=== PATIENT | female | born 1960 | race Caucasian/White ===

== ENCOUNTER → 2024-03-07 06:48 | Outpatient (REF) | payer OTHER, SELFPAY | LOC: WDC 06:48 | PROVIDERS: ATTENDING PHYSICIAN Family Medicine | DX: Z12.31 Encounter for screening mammogram for malignant neoplasm of breast (principal) | CPT/HCPCS: 77063; 77067 ==

== ENCOUNTER → 2024-05-30 06:31 | Day surgery (SDC) | payer OTHER, SELFPAY | LOC: GI 06:31 | PROVIDERS: ATTENDING PHYSICIAN Internal Medicine; FAMILY PHYSICIAN Family Medicine | DX: Z12.11 Encounter for screening for malignant neoplasm of colon (principal); Z80.0 Family history of malignant neoplasm of digestive organs; K57.30 Diverticulosis of large intestine without perforation or abscess without bleeding; K44.9 Diaphragmatic hernia without obstruction or gangrene; K31.7 Polyp of stomach and duodenum; K22.89 Other specified disease of esophagus; K29.50 Unspecified chronic gastritis without bleeding; K20.80 Other esophagitis without bleeding | CPT/HCPCS: 43239; G0105; 88305; 88342 ==

== ENCOUNTER 2025-06-25 06:45 | Emergency (ER) | payer OTHER, SELFPAY ==
[2025-06-25 06:47] VITALS: BP 117/71
[2025-06-25 07:07] VITALS: BMI 24.1
--- NOTE | 2025-06-25 07:11 | ED.GENMED ---
History of Present Illness
General
Chief Complaint: Abdominal Pain
Source: patient
Exam Limitations: none
Time Seen by Provider: 06/25/25 06:55
Nursing documentation reviewed up to this point in time: agreed with
History of Present Illness
History of Present Illness:
Patient presents to ED secondary to worsening lower abdominal pain with nausea sensation over the past 5 days. Abdominal pain described as sharp, nonradiating, without any alleviating or exacerbating factors. Patient states that 1 month ago, she
had similar symptoms which resolved gradually over the 1 week period. Patient was symptom-free over the following 2 weeks, until pain started again this weekend. Denies chills, but reports low-grade fever. Denies vomiting. Patient reports loose
bowel movements. Denies recent change in medications or diet. Denies recent travel. Denies recent sick contact. Patient does have history of C. difficile colitis, which she contracted when taking care of her father for C. difficile. There is
family history of colon cancer, for which she receives screening colonoscopy, which have been normal. However, she has been told that she may have diverticulosis and avoid seedy products in her diet. In addition, patient who has chronic back pain,
reports exacerbating her back pain, when she bent down this morning. Denies urinary or bowel incontinence. Denies loss of sensation or weakness of legs. Patient does see chiropractor on regular basis.
Past History
Past History
ED Past Medical History: Other (History of encephalitis )
ED Past Surgical History: Other (Tubal ligation, vein stripping, oral surgery )
Social History
Tobacco: Non-smoker
Personal:
Review of Systems
Review of Systems
Allergies reviewed?: Yes
All Other Systems: ROS reviewed and negative except as documented in HPI and ROS
Constitutional: Reports fever; Denies chills
Respiratory: Reports no symptoms
Cardiac: Reports no symptoms
ABD/GI: Reports abdominal pain, nausea and diarrhea; Denies vomiting
Musculoskeletal: Reports back pain
Skin: Reports no symptoms
Neurological: Reports no symptoms
Phy Exam
Physical Exam
Physical Exam:
Physical Exam
General: mild painful distress, not acutely ill. afebrile
Head: nc/at. eomi
Neck: supple. normal range of motion
Abdomen: normal bowel sounds. no distention. mild LLQ tenderness to palpation
Neuro: alert and oriented x 3. no focal neurological deficits
Skin: no rash
Psychiatric: well kept. interactive and cooperative
Extremities: no edema. no calf tenderness.
Course
Orders/Labs/Results
Orders:
Orders
06/25/25 07:10
CT Abd/pelvis W Iv Cont Urgent
Comment:
Reason For Exam: LLQ pain
Ketorolac [Toradol] 15 mg IV NOW STA
06/25/25 07:11
0.9% Sodium Chloride 500 ml [Nss] 500 ml IV BOLUS
06/25/25 07:21
Complete Blood Count/With Diff Urgent
06/25/25 07:22
Comprehensive Metabolic Panel Urgent
06/25/25 08:28
Urinalysis Reflex To Culture Urgent
Date Specimen was Collected: 06/25/25
Time Specimen was Collected: 08:25
06/25/25 08:55
Amoxicillin 875 mg/Clav 125 mg [Augmentin 875 mg/125 mg] 1 tablet PO NOW STA
Abnormal Lab Results
06/25/25 06/25/25
07:21 07:22
Absolute Neuts (auto) 6.6 H 10^3/uL
(1.4-6.5)
Absolute Monos (auto) 0.8 H 10^3/uL
(0.1-0.6)
Neutrophils % 75.5 H %
(42.2-75.2)
Lymphocytes % 14.2 L %
(20.5-51.1)
Glucose 103 H mg/dl
(70-99)
06/25/25 07:21
06/25/25 07:22
Vital Signs
Initial and Last Documented VS:
Initial Vital Signs
Temp Pulse Resp BP Pulse Ox
98.3 F 91 18 117/71 100
06/25/25 06:47 06/25/25 06:47 06/25/25 06:47 06/25/25 06:47 06/25/25 06:47
Last Documented Vital Signs
Temp Pulse Resp BP Pulse Ox
98.3 F 91 18 114/50 97
06/25/25 06:47 06/25/25 06:47 06/25/25 06:47 06/25/25 08:30 06/25/25 08:30
MDM/Problems Addressed
MDM/Problems Addressed:
CT abdomen pelvis report reviewed and discussed with patient. Patient otherwise remains afebrile, hemodynamically stable, and nontoxic-appearing, with improvement in symptoms after administration of Toradol IV. As such, patient will be discharged
home with antibiotics, i.e. Augmentin, with recommendation to follow-up with her GI physician for reevaluation. Return precautions provided, i.e. fever/worsening pain/vomiting. Patient expressed understanding at time of discharge.
*Pulse Oximetry
SaO2: 100
Oxygen Mode of Delivery: Room air
Patient hypoxic: no
*Critical Care Note
Total Time (30-74mins, 75-104mins- exclusive of procedures): Not Applicable
ED Attending Note
-
Portions of this chart may have been created with voice recognition software.� Occasional wrong word or��sound alike� substitutions may have occurred due to the inherent limitations of voice recognition software.
Discharge Plan
Departure
Patient Disposition: Home (Routine Discharge)
Date of Disposition: 06/25/25
Time of Disposition: 08:56
Patient with high blood pressure during this ER visit?: No
Condition: Good
Discharge Problem:
Diverticulitis
Instructions: Diverticulitis (DC)
Prescriptions:
New
amoxicillin-pot clavulanate 875-125 mg tablet
1 tab PO Q12H Qty: 19 0RF
Referrals:
Viviana Field MD [Family Provider, Internal Medicine]
Maria Victoria hCase DO [Active, Gastroenterology]
Activity Restrictions/Additional Instructions:
As discussed, please follow-up with your primary care physician and/or GI physician for reevaluation. Please consider return to ED with worsening symptoms, i.e. fever/worsening pain/vomiting. Your prescription has been sent electronically to [facility]
pharmacy in [place].
Interventions
Interventions:
*Risk Screen - Suicide Last Done: 06/25/25 06:47
*General Assessment Last Done: 06/25/25 06:47
*Neglect/Abuse Screening Last Done: 06/25/25 06:47
*ED- Fall Risk Assessment Last Done: 06/25/25 07:09
*ED COVID-19 Vaccine History Last Done: 06/25/25 07:09
*Nursing Disposition Last Done: 06/25/25 09:08
BL-Zcjogy-Rbbadsmomm Assessment Last Done: 06/25/25 07:26
Discharge Date and Time
Discharge Date/Time: 06/25/25 09:13
Print Language: IRISH
[2025-06-25] MEDS: NSS 500 IV (07:23)
[2025-06-25] MEDS: TORADOL 15 MG IV (07:23)
[2025-06-25 07:31] VITALS: BP 109/57
[2025-06-25 07:32] LABS: Hematocrit 40.3 % (37.0-47.0); Hemoglobin 13.5 g/dL (12.0-16.0); Mean Corp Hgb Conc. 33.5 g/dL (33.0-37.0); Mean Corpuscular Volume 91.0 fL (81.0-99.0); Nucleated Red Blood Cells % 0 %; Platelet Count 202 10^3/uL (130-400); Red Cell Dist. Width 12.1 % (11.5-14.5)
[2025-06-25 07:51] LABS: ALT (SGPT) 20 U/L (0-35); AST (SGOT) 21 U/L (14-36); Albumin 4.2 g/dl (3.5-5.0); Alkaline Phosphatase 81 U/L (38-126); Blood Urea Nitrogen 11 mg/dl (7-17); Calcium 9.3 mg/dl (8.4-10.2); Carbon Dioxide 27 mmol/L (22-30); Chloride 105 mmol/L (98-107); Estimated Creatinine Clearance 90 ml/min; Glucose 103 mg/dl (70-99); Potassium 4.1 mmol/L (3.5-5.1); Sodium 138 mmol/L (135-145); Total Protein 6.8 g/dl (6.3-8.2); eGFR > 60.00
[2025-06-25 07:55] VITALS: BP 115/56
[2025-06-25 08:26] VITALS: BP 111/46
[2025-06-25 08:30] VITALS: BP 114/50
[2025-06-25 08:41] LABS: Urine Character Clear (Clear)
[2025-06-25] MEDS: AUGMENTIN 875 MG/125 MG 1 TABLET PO (09:06)
== END 2025-06-25 09:13 | disposition home or self-care (01) ==
LOC: EMR 06:45
PROVIDERS: EMERGENCY PHYSICIAN Emergency Medicine; FAMILY PHYSICIAN Hospitalist
DX: K57.32 Diverticulitis of large intestine without perforation or abscess without bleeding (principal); M54.9 Dorsalgia, unspecified; G89.29 Other chronic pain; Z86.19 Personal history of other infectious and parasitic diseases; Z80.0 Family history of malignant neoplasm of digestive organs
CPT/HCPCS: 99284; 96374; 96361; 74177; 80053; 81003; 85025; Q9967

== ENCOUNTER → 2025-09-25 08:30 | Outpatient (REF) | payer OTHER, SELFPAY | LOC: RAD 08:30 | PROVIDERS: ATTENDING PHYSICIAN Obstetrics & Gynecology; FAMILY PHYSICIAN Hospitalist | DX: R10.20 Pelvic and perineal pain unspecified side (principal); D21.9 Benign neoplasm of connective and other soft tissue, unspecified; N93.0 Postcoital and contact bleeding | CPT/HCPCS: 76830; 76856 ==